=== PATIENT | male | born 1970 | race Caucasian/White ===

== ENCOUNTER 2019-04-24 14:05 | Emergency (ER) | payer OTHER ==
[~2019-04-24] VITALS: Ht 175.3 cm; Wt 104.3 kg
[~2019-04-24 14:05] MED LIST: CARISOPRODOL 3350 MG PO; FORTAMET1000 MG PO; LIORESAL 10 MG10 MG PO; LISINOPRIL-HCT1 EAC2 PO; NAPROSYN375 MG PO; NORCO 5-325 TA1 EACH PO; PERCOCET 5-3251 EACH PO; VYTORIN 10-401 EACH PO
[2019-04-24] MEDS ORDERED: XANAX XR3 MG PO (14:10)
[2019-04-24 14:47] VITALS: BP 139/84
== END 2019-04-24 14:48 | disposition home or self-care (01) ==
LOC: M.ERS 14:05
DX: F41.9 Anxiety disorder, unspecified (principal); I10 Essential (primary) hypertension; E11.9 Type 2 diabetes mellitus without complications; E78.00 Pure hypercholesterolemia, unspecified